=== PATIENT | female | born 1985 | race Caucasian/White ===

== ENCOUNTER 2022-04-08 05:50 | Inpatient (IN) ==
[2022-04-08] MEDS ORDERED: Buffered Lidocaine 1% SYRIN 1 ml INTRADERM ONE (07:31)
[2022-04-08] MEDS ORDERED: Sodium Citrate/Citric Acid LIQ 15 ML UDC ONE (07:37)
[2022-04-08] MEDS ORDERED: ceFOXitin 2 GM IVPREMIX 2 GM/50 ML BAG ONE (07:38)
[2022-04-08] MEDS ORDERED: fentaNYL 100 mcg/2 ml 50 MCG/ML VIAL ONE (07:53)
[2022-04-08] MEDS ORDERED: Morphine PF AMP (0.5MG/ML) 5 MG/10 ML AMP ONE (07:53)
[2022-04-08] MEDS ORDERED: Phenylephrine IV 10 MG/ML 1 ml VIAL ONE (07:58)
[2022-04-08] MEDS ORDERED: LACTATED RINGERS 1000 ML BAG IV SCH (08:00)
[2022-04-08 08:06] LABS: Hematocrit 32 % (35-47); Hemoglobin 10.6 g/dL (12.0-16.0); Mean Corpuscular HGB Conc 33 g/dL (31-36); Mean Corpuscular Hemoglobin 28 pg (27-31); Mean Corpuscular Volume 84 fL (80-97); Mean Platelet Volume 7.7 fL (7.4-10.4); Platelet Count 293 10^3/uL (150-450); Red Blood Count 3.78 10^6 /uL (3.70-4.87); Red Cell Distribution Width 14 % (10-15); White Blood Count 10.1 10^3/uL (3.5-10.8)
[2022-04-08 09:06] LABS: Urine Benzodiazepine Screen None Detected (None Detect); Urine Cannabinoids Screen None Detected (None Detect); Urine Opiates Screen None Detected (None Detect)
[2022-04-08] MEDS ORDERED: Dexamethasone IV 4 MG/ML VIAL 1 ml VIAL ONE (09:19)
[2022-04-08] MEDS ORDERED: Ondansetron 4 mg VIAL 2 MG/ML 2 ml VIAL ONE (09:19)
[2022-04-08] MEDS ORDERED: Oxytocin 10 UNITS/ML 1 ML VIAL ONE ×3 (09:19→09:53)
[2022-04-08] MEDS ORDERED: Ondansetron 4 mg VIAL 2 MG/ML 2 ml VIAL IV PRN (09:46)
[2022-04-08] MEDS ORDERED: Naloxone 0.4 mg VIAL 0.4 mg/ml 1 ml VIAL IV PRN (09:46)
[2022-04-08] MEDS ORDERED: oxyCODONE/Acetamin 5/325 mg TAB PO PRN (09:46)
[2022-04-08] MEDS ORDERED: Dibucaine 1% OINT 28.35 GM TUBE PR PRN (10:10)
[2022-04-08] MEDS ORDERED: Glycerin ADULT 2.4 gm SUPP PR PRN (10:10)
[2022-04-08] MEDS ORDERED: Witch Hazel PAD JAR TOPICAL PRN (10:10)
[2022-04-08 11:00] LABS: Urine Appearance Clear; Urine Bilirubin Negative (Negative); Urine Blood Negative (Negative); Urine Color Straw; Urine Glucose Negative (Negative); Urine Ketones Negative (Negative); Urine Nitrite Negative (Negative); Urine Protein Negative (Negative); Urine Specific Gravity 1.004 (1.002-1.030); Urine Urobilinogen Negative (Negative)
[2022-04-08] MEDS ORDERED: Oxytocin in LR 20 UNITS/1,000 ML BAG IVPB SCH (11:00)
[2022-04-08] MEDS ORDERED: Lactated Ringers 1000 ml BAG 1,000 ML IV SCH (11:00)
[2022-04-09 07:29] LABS: ABS Eosinophils 0.1 10^3/ul (0-0.6); ABS Monocytes 1.1 10^3/ul (0-0.8); ABS Neutrophils 8.8 10^3/ul (1.5-7.7); Eosinophil % 0.9 %; Hematocrit 28 % (35-47); Hemoglobin 9.5 g/dL (12.0-16.0); Lymphocyte % 16.8 %; Mean Corpuscular HGB Conc 34 g/dL (31-36); Mean Corpuscular Hemoglobin 29 pg (27-31); Mean Corpuscular Volume 85 fL (80-97); Mean Platelet Volume 7.8 fL (7.4-10.4); Platelet Count 262 10^3/uL (150-450); Red Cell Distribution Width 14 % (10-15)
[2022-04-09] MEDS: Butalb/Acetamin/Caff TAB 325-50-40MG PO PRN ×2 (14:29→18:15)
[2022-04-10] MEDS: Butalb/Acetamin/Caff TAB 325-50-40MG PO PRN ×2 (01:35→10:08)
[2022-04-11 12:59] VITALS: BP 138/83
== END 2022-04-11 16:00 | disposition home or self-care (01) | DRG 540 ==
LOC: MCHOB 05:50
PROVIDERS: ADMIT Obstetrics & Gynecology; ATTEND Obstetrics & Gynecology